=== PATIENT | male | born 1950 | race Caucasian/White ===

== ENCOUNTER 2016-07-28 00:51 | Emergency (ER) | payer MEDICARE, OTHER ==
[2016-07-28] MEDS ORDERED: ASPIRIN 81 MG TABLET, CHEWABLE PO ONE (01:35)
[2016-07-28 02:39] LABS: ABSOLUTE BASOPHILS # (AUTO) 0.1 10^3/uL (0.0-0.2); ABSOLUTE EOSINOPHILS # (AUTO) 0.2 10^3/uL (0.0-0.6); ABSOLUTE LYMPHOCYTES (AUTO) 2.1 10^3/uL (0.5-4.7); ABSOLUTE MONOCYTES (AUTO) 0.7 10^3/uL (0.1-1.4); ABSOLUTE NEUT (AUTO) 6.9 10^3/uL (1.7-8.2); BASOPHILS % (AUTO) 0.5 % (0-2); EOSINOPHILS % (AUTO) 1.7 % (0-6); HEMATOCRIT 42.4 % (37.9-51.0); HEMOGLOBIN 14.3 g/dL (13.5-17.0); HGB HCT DIFFERENCE 0.5; LYMPHOCYTES % (AUTO) 20.8 % (13-45); MEAN CORPUSCULAR HEMOGLOBIN 28.7 pg (27.0-33.4); MEAN CORPUSCULAR HGB CONC 33.6 g/dL (32.0-36.0); MEAN CORPUSCULAR VOLUME 85 fl (80-97); MONOCYTES % (AUTO) 7.1 % (3-13); RED BLOOD COUNT 4.97 10^6/uL (4.35-5.55); RED CELL DISTRIBUTION WIDTH 13.5 % (11.5-14.0); SEGMENTED NEUTROPHILS % (AUTO) 69.9 % (42-78); WHITE BLOOD COUNT 9.9 10^3/uL (4.0-10.5)
[2016-07-28 02:57] LABS: ALANINE AMINOTRANSFERASE 39 U/L (21-72); ALBUMIN 4.4 g/dL (3.5-5.0); ALKALINE PHOSPHATASE 48 U/L (38-126); ANION GAP 11 (5-19); ASPARTATE AMINO TRANSFERASE 30 U/L (17-59); BILIRUBIN,TOTAL 0.7 mg/dL (0.2-1.3); BLOOD UREA NITROGEN 20 mg/dL (7-20); CALCIUM 9.6 mg/dL (8.4-10.2); CARBON DIOXIDE 30 mmol/L (22-30); CHLORIDE 100 mmol/L (98-107); CREATINE KINASE 249 U/L (55-170); CREATININE RESULT 0.68 mg/dL (0.52-1.25); GLUCOSE 105 mg/dL (75-110); POTASSIUM 4.6 mmol/L (3.6-5.0); SODIUM 140.8 mmol/L (137-145); TOTAL PROTEIN 7.7 g/dL (6.3-8.2)
[2016-07-28] MEDS: NITROGLYCERIN 0.4 MG/TAB 25 TAB/BOTTLE SL PRN ×3 (03:06→03:16)
[2016-07-28] MEDS ORDERED: ONDANSETRON HCL INJ/PF 4 MG/2 ML SDV IV ONE (03:07)
--- NOTE | 2016-07-28 03:07 | ER Document Report ---
Addendum entered and electronically signed by ABDI VIEIRA NP 07/28/16 08:45 : Course - Re-evaluation Re-evalutation: 07/28/16 08:44 Patient complains of headache, Tylenol ordered. Patient's vital signs stable. Patient denies any chest pain or shortness of breath. Breath sounds clear bilaterally, heart rate and rhythm regular without murmur. Patient stable for transfer. - Vital Signs Vital signs: Temp Pulse Resp BP Pulse Ox 97.7 F 70 18 119/86 H 98 07/28/16 07:30 07/28/16 01:02 07/28/16 07:30 07/28/16 07:30 07/28/16 07:30 - Laboratory Result Diagrams: 07/28/16 02:15 07/28/16 02:15 Laboratory results interpreted by me: 07/28/16 07/28/16 02:15 02:15 Creatine Kinase 249 H CK-MB (CK-2) 4.76 H Addendum entered and electronically signed by ABDI VIEIRA NP 07/28/16 07:26 : Course - Re-evaluation Re-evalutation: 07/28/16 07:26 bedside report received, care assumed. Pt resting denies needs at present, VS stable. - Vital Signs Vital signs: Temp Pulse Resp BP Pulse Ox 97.8 F 70 15 122/87 H 96 07/28/16 01:02 07/28/16 01:02 07/28/16 07:15 07/28/16 07:15 07/28/16 07:15 - Laboratory Result Diagrams: 07/28/16 02:15 07/28/16 02:15 Laboratory results interpreted by me: 07/28/16 07/28/16 02:15 02:15 Creatine Kinase 249 H CK-MB (CK-2) 4.76 H Original Note: ED Cardiac - General Chief Complaint: Chest Pain Stated Complaint: CHEST PAIN Time seen by provider: 03:00 Notes: Patient is a 65-year-old male that comes emergency department with chief complaint of chest pain that feels like it comes from the top middle of his back to his lower chest, nausea, and sweating. Symptoms started 9 PM all he was sitting. Patient has had a stress test but not a cardiac catheterization. He states that they told him the stress test was negative, performed last year. Past medical history of type II diabetes, former smoker, positive family history of cardiac disease. TRAVEL OUTSIDE OF THE [place] IN LAST 30 DAYS: No - Related Data Allergies/Adverse Reactions: flu virus vacc tvs (18 yr up) cell derived [From EZ Flu ( Flucelvax)(PF)] Allergy (Intermediate, Verified 07/28/16 02:57) Generalized rash Past Medical History - General Information source: Patient - Social History Smoking Status: Former Smoker Frequency of alcohol use: Occasional Drug Abuse: None Lives with: Spouse/Significant other Family History: CAD - Past Medical History Cardiac Medical History: Reports: Hx Hypertension - was on lisinopril but states he was taken off due to BP stabilization Endocrine Medical History: Reports: Hx Diabetes Mellitus Type 2 - borderline- metformin Renal/ Medical History: Denies: Hx Peritoneal Dialysis - Immunizations Hx Diphtheria, Pertussis, Tetanus Vaccination: Yes Review of Systems - Review of Systems Constitutional: No symptoms reported EENT: No symptoms reported Cardiovascular: See HPI Respiratory: No symptoms reported Gastrointestinal: See HPI Genitourinary: No symptoms reported Male Genitourinary: No symptoms reported Musculoskeletal: No symptoms reported Skin: No symptoms reported Hematologic/Lymphatic: No symptoms reported Neurological/Psychological: No symptoms reported Physical Exam - Vital signs Vitals: Temp Pulse BP Pulse Ox 97.8 F 70 184/98 H 96 07/28/16 01:02 07/28/16 01:02 07/28/16 01:02 07/28/16 01:02 Interpretation: Normal - General General appearance: Anxious In distress: Moderate - Patient appears to obviously be in pain, diaphoretic, flushed - HEENT Head: Normocephalic, Atraumatic Eyes: Normal Conjunctiva: Normal Extraocular movements intact: Yes Eyelashes: Normal Pupils: PERRL Sinus: Normal Nasal: Normal Mouth/Lips: Normal Mucous membranes: Normal Pharynx: Normal Neck: Normal - Respiratory Respiratory status: No respiratory distress Chest status: Nontender Breath sounds: Normal. No: Decreased air movement, Wheezing Chest palpation: Normal - Cardiovascular Rhythm: Regular. No: Tachycardia Heart sounds: Normal auscultation, S1 appreciated, S2 appreciated Murmur: No - Abdominal Inspection: Normal Distension: No distension Bowel sounds: Normal Tenderness: Nontender - I did not appreciate any notable abdominal tenderness. No: Tender, Guarding Organomegaly: No organomegaly - Back Back: Normal, Nontender. 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 No significant change compared to prior. Chest x- ray unremarkable. Patient in obvious discomfort, hypertensive, diaphoretic, clear lungs, tachypnea , no shortness of breath, currently nauseated. Initial CBC, chemistry, troponins all unremarkable. Discussed with Dr. Youngblood per [facility] guidelines, concern for a dissection with patient's presentation. CTA of the chest and abdomen performed, no acute abnormalities noted. Patient somewhat improved after nitroglycerin sublingual, placed on nitroglycerin drip, patient began to improve, gave fentanyl in addition to this , patient improved more. Patient having somewhat intermittent chest pain now, on reevaluation he states he significantly improved but he is not chest pain- free. Increased nitro drip to 15 mcg. blood pressure is normalized. Patient still has chest pain but is significantly improved. 07/28/16 Because of persistent chest pain with no elevation of cardiac enzymes or EKG change, will call to transfer patient to tertiary center. Discussed with Dr. Youngblood. Discussed with patient, he states that he would like to go to [facility] because of closer proximity to his home. 07/28/16 0582 Called transfer center at [facility], pending call back. 07/28/16 [address] Rosa, patient will be accepted for transfer. - Vital Signs Vital signs: Temp Pulse Resp BP Pulse Ox 97.8 F 70 13 121/78 97 07/28/16 01:02 07/28/16 01:02 07/28/16 06:15 07/28/16 06:15 07/28/16 06:15 - Laboratory Result Diagrams: 07/28/16 02:15 07/28/16 02:15 Laboratory results interpreted by me: 07/28/16 07/28/16 02:15 02:15 Creatine Kinase 249 H CK-MB (CK-2) 4.76 H Discharge - Discharge Clinical Impression: Unstable angina Chest pain Qualifiers: Chest pain type: unspecified Qualified Code(s): R07.9 - Chest pain, unspecified Condition: Stable Disposition: [facility]
[2016-07-28 03:09] LABS: CREATINE KINASE MB 4.76 ng/mL (<4.55)
[2016-07-28 03:11] LABS: TROPONIN I < 0.012 ng/mL
[2016-07-28] MEDS ORDERED: MORPHINE SULFATE 10 MG/ML INJ IV ONE (03:19)
[2016-07-28] MEDS ORDERED: NITROGLYCERIN/D5W 250 ML IV PRN (03:36)
[2016-07-28] MEDS ORDERED: NITROGLYCERIN/D5W 50 MG/250 ML RTUINJ IV ONE (03:39)
[2016-07-28] MEDS ORDERED: FENTANYL CITRATE INJ/PF 100 MCG/2 ML AMPUL IV ONE (04:00)
[2016-07-28] MEDS ORDERED: FENTANYL CITRATE INJ/PF 100 MCG/2 ML AMPUL ONE (04:17)
[2016-07-28] MEDS ORDERED: ACETAMINOPHEN 325 MG TABLET PO ONE (08:44)
[2016-07-28 08:45] VITALS: BP 126/74
--- NOTE | 2016-07-28 09:38 | EKG REPORT ---
SEVERITY:- NORMAL ECG - SINUS RHYTHM : Confirmed by: Deisi Vallecillo MD 28-Jul-2016 09:37:18
--- NOTE | 2016-07-28 09:39 | EKG REPORT ---
SEVERITY:- OTHERWISE NORMAL ECG - SINUS RHYTHM LOW VOLTAGE IN FRONTAL LEADS : Confirmed by: Deisi Vallecillo MD 28-Jul-2016 09:38:01
== END 2016-07-28 09:00 | disposition short-term general hospital (02) ==
LOC: ER 00:51
DX: I20.0 Unstable angina (principal); I10 Essential (primary) hypertension; R11.0 Nausea; R61 Generalized hyperhidrosis; R51 Headache; E11.9 Type 2 diabetes mellitus without complications; R23.2 Flushing; R06.82 Tachypnea, not elsewhere classified; Z87.891 Personal history of nicotine dependence; Z82.49 Family history of ischemic heart disease and other diseases of the circulatory system; Z88.7 Allergy status to serum and vaccine
CPT/HCPCS: 93005; 99285; 96375; 96365; 96366; 36415; 82553; 82550; 83690; 85025; 80053; 84484; 71020; 71275; 74175; 93010; A9270 ×2; J3010; J2270; J2405; J3490

== ENCOUNTER → 2017-09-11 | Outpatient (CLI) | payer MEDICARE, OTHER ==
--- NOTE | 2017-09-11 16:00 | RADIOLOGY REPORT (SQ) ---
EXAM DESCRIPTION: MRI HEAD COMBO COMPLETED DATE/TIME: 09/11/2017 10:23 am REASON FOR STUDY: H53.2 DIPLOPIA H53.2 DIPLOPIA COMPARISON: None. TECHNIQUE: Multiplanar imaging includes noncontrasted T1, T2, FLAIR, diffusion with ADC map and post gadolinium contrast T1 sequences. Images stored on PACS. Additional thin section axial and coronal T1 pre and postcontrast, T2 fat sat images of the orbits an d central optic pathways. CONTRAST TYPE AND DOSE: 20 mL Multihance. RENAL FUNCTION: GFR > 60. LIMITATIONS: None. FINDINGS: ANATOMY: Cavum septum pellucidum, a benign anatomic variant. Normal vascular flow voids. Pituitary fossa normal. CSF SPACES: Normal in size and contour. No hemorrhage. CEREBRUM: Sulci and gyri normal in size and contour. Age-appropriate minimal increased deep perivent ricular white matter signal on FLAIR imaging. No evidence of hemorrhage, mass, or extraaxial fluid co llection. No abnormal enhancement post contrast. POSTERIOR FOSSA: No signal alteration. No hemorrhage. No edema, masses, or mass effect. Internal hector tory canals, cerebellopontine angles, mastoids normal. No enhancing lesions. No abnormal enhancement post contrast. ORBITS: Bilateral inferior rectus muscles demonstrate inflammation and enlargement, bright signal on T2 with avid gadolinium enhancement. Remainder of the extraocular muscles are otherwise unremarkable . Question early changes of thyroid ophthalmopathy. Optic nerves, intra and extraconal fat, lacrimal glands unremarkable. Globes are post cataract surge ry. Suprasellar cistern, cavernous sinuses, optic pathways in the field of view are otherwise unremarkabl e. DIFFUSION-WEIGHTED IMAGES: No evidence of acute ischemic change. PARANASAL SINUSES: No fluid levels. Mucosa normal. OTHER: No other significant finding. IMPRESSION: No acute brain parenchymal findings. Enlarged inferior rectus muscles bilaterally with edema on T2 and contrast enhancement. Findings sug gest thyroid ophthalmopathy EVIDENCE OF ACUTE STROKE: NO. TECHNICAL DOCUMENTATION: JOB ID: [id number] [employer]- All Rights Reserved Reading location - IP/workstation name: [email or web address]
== END ==
LOC: RAD 09:28
PROVIDERS: ATTEND Ophthalmology
DX: H53.2 Diplopia (principal)
CPT/HCPCS: 82565; 70553; A9577

== ENCOUNTER → 2018-08-14 | Outpatient (CLI) | payer MEDICARE, OTHER ==
--- NOTE | 2018-08-14 10:50 | RADIOLOGY REPORT (SQ) ---
EXAM DESCRIPTION: CT CHEST WITHOUT COMPLETED DATE/TIME: 08/14/2018 10:05 am REASON FOR STUDY: MULTIPLE LUNG NODULES (R91.8) R91.8 OTHER NONSPECIFIC ABNORMAL FINDING OF LUNG FI ELD COMPARISON: 07/28/2016 TECHNIQUE: CT scan performed of the chest without intravenous contrast. Images reviewed with lung, soft tissue and bone windows. Reconstructed coronal and sagittal MPR images reviewed. All images st ored on PACS. All CT scanners at this facility use dose modulation, iterative reconstruction, and/or weight based d osing when appropriate to reduce radiation dose to as low as reasonably achievable (ALARA). [facility]: Dose Right [facility]: CareDose [facility]: Dose Right [facility]: Teradose 4D [facility]: ERLink RADIATION DOSE: CT Rad equipment meets quality standard of care and radiation dose reduction techniq ues were employed. CTDIvol: 13.1 mGy. DLP: 529 mGy-cm. mGy. LIMITATIONS: No technical limitations. FINDINGS: LUNGS AND PLEURA: Scattered tiny subcentimeter pulmonary nodules, largest within the right lower lobe measuring 5 mm (series 4, image 66), stable compared to CT dated 11/01/2015. No new suspic ious nodules or masses. No focal airspace disease. No significant effusion. No pneumothorax. Mini mal left basilar hypoventilatory change. HILAR AND MEDIASTINAL STRUCTURES: No mediastinal, hilar or axillary adenopathy. HEART AND VASCULAR STRUCTURES: No pericardial effusion. Scattered coronary atherosclerosis. Normal heart size. Aortic atherosclerosis. Mild dilation of the thoracic aorta measuring up to 3.8 cm maxi ajay. . UPPER ABDOMEN: No significant findings. Limited exam. THYROID AND OTHER SOFT TISSUES: No masses. No adenopathy. BONES: No significant finding. HARDWARE: Prior cholecystectomy surgical clips. OTHER: No other significant findings. IMPRESSION: No evidence of acute intrathoracic process. Mild dilation of the thoracic aorta measuring up to 3.8 cm, stable. Stable subcentimeter pulmonary nodules compared to 2016. No new suspicious nodules or masses. TECHNICAL DOCUMENTATION: JOB ID: [id number] Quality ID # [id number]: Final reports with documentation of one or more dose reduction techniques (e.g., Au tomated exposure control, adjustment of the mA and/or kV according to patient size, use of iterative reconstruction technique) 2010 [employer]- All Rights Reserved Reading location - IP/workstation name: [email or web address]
== END ==
LOC: RAD 09:45
PROVIDERS: ATTEND Internal Medicine Pulmonary Disease
DX: R91.8 Other nonspecific abnormal finding of lung field (principal)
CPT/HCPCS: 71250

== ENCOUNTER → 2019-03-17 | Outpatient (CLI) | payer MEDICARE, OTHER ==
--- NOTE | 2019-03-17 13:11 | RADIOLOGY REPORT (SQ) ---
EXAM DESCRIPTION: MRI LUMBAR SPINE WITHOUT COMPLETED DATE/TIME: 03/17/2019 12:36 pm REASON FOR STUDY: M54.16 RADICULOPATHY, LUMBAR REGION M54.16 RADICULOPATHY, LUMBAR REGION COMPARISON: None. TECHNIQUE: Sagittal and Axial imaging includes T1, T2, STIR and gradient echo sequences. Coronal T2/ HASTE imaging. LIMITATIONS: None. FINDINGS: VISUALIZED UPPER ABDOMEN: Limited evaluation. No acute or suspicious findings suggested. SEGMENTATION: No transitional anatomy. The lowest well-developed disc space is labeled L5-S1. ALIGNMENT: Anatomic. VERTEBRAE: Intact. BONE MARROW: Normal. No marrow replacement or reactive changes. DISC SIGNAL: The L5-S1 disc is narrowed. There is decreased signal intensity. POSTERIOR ELEMENTS: Generally intact. No pars defect evident. HARDWARE: None in the spine. CORD AND CONUS: Normal in size and signal intensity. Conus at the T12-L1 level. SOFT TISSUES: No aortic aneurysm seen. No bulky retroperitoneal adenopathy or mass. No paraspinal mas s or fluid. L1-L2: No significant spinal stenosis or exit foraminal stenosis. L2-L3: No significant spinal stenosis or exit foraminal stenosis. L3-L4: No significant spinal stenosis or exit foraminal stenosis. L4-L5: Mild facet and ligament hypertrophy narrows the posterior aspect of the spinal canal. Nerve r oots are displaced medially on the right. L5-S1: There is a very shallow disc/ osteophyte complex with no central canal or foraminal stenosis. LOWER THORACIC: Incompletely imaged. No stenosis seen. SACRUM: Visualized upper sacrum intact. OTHER: No other significant findings. IMPRESSION: Facet and ligament hypertrophy at L4-5 narrows the posterior aspect of the spinal canal. Nerve roots are displaced medially on the right side. There is a very shallow disc/ osteophyte com plex at L5-S1 with no central canal or foraminal stenosis. TECHNICAL DOCUMENTATION: JOB ID: [id number] [employer]- All Rights Reserved Reading location - IP/workstation name: [email or web address]
== END ==
LOC: RAD 11:51
PROVIDERS: ATTEND Family Medicine
DX: M54.16 Radiculopathy, lumbar region (principal)
CPT/HCPCS: 72148

== ENCOUNTER → 2019-05-10 | Outpatient (CLI) | payer MEDICARE, OTHER ==
--- NOTE | 2019-05-10 14:41 | EKG REPORT ---
SEVERITY:- BORDERLINE ECG - SINUS RHYTHM BORDERLINE T WAVE ABNORMALITIES : Confirmed by: Deisi Vallecillo MD 10-May-2019 14:40:26
--- NOTE | 2019-05-11 21:52 | DRAGON STRESS TEST REPORT ---
Exercise EKG treadmill stress test. Data procedure: 05/10/2019. Ordering Provider: Dr. Tristan Scott. Patient Status: Out Patient. Indication: Precordial chest pain. Coronary risk factors:. Age, and diabetes mellitus. Significant physical findings prior to stress testing show a blood pressure of 142/97 and a heart rate of 68 beat per minute. Auscultation of the heart shows normal S1 and S2.NoS3 or S4 gallops. Systolic murmur in the left sternal border and apex. Lungs are clear to auscultation and percussion. Resting 12-lead EKG:. Sinus Rhythm. Nonspecific T changes in leads I and aVL. Procedure: The patient was excised on a standard Andrzej protocol. . The patient walked a total of 8 minutes and 44 seconds on this protocol and reached a peak heart rate of 129 beats per minute, which is 86% of maximum predicted heart rate for age. This is at a workload of 10.10 METS. The test was stopped because of. Achievement of target heart rate. The patient described no symptoms of chest pain/discomfort Exercise EKG's show:. There is no EKG evidence of exercise-induced ischemia. Arrhythmias seen:None. The blood pressure response was hypertensive. At peak exercise the blood pressure was 204/92 millimeters of Hg. The double product was 26.3 K. Summary of findings and interpretation: 1. No chest pain or chest discomfort symptoms reproduced. 2. No EKG evidence of ischemia in the form of ST segment depression. 3. Hypertensive blood pressure response. 4. No arrhythmias seen. 5. Good exercise tolerance, good aerobic capacity. Diagnostic treadmill stress test negative for ischemia by EKG criteria. Recommendations: 1. Recommend optimal blood pressure control. 2.Aggressive risk factor modification, and treatment of underlying co- morbidities. MTDD
== END ==
LOC: SP 08:39
PROVIDERS: ATTEND Internal Medicine
DX: R07.2 Precordial pain (principal); E11.9 Type 2 diabetes mellitus without complications
CPT/HCPCS: 93005; 93010; 93017

== ENCOUNTER → 2020-07-18 | Outpatient (CLI) | payer MEDICARE, OTHER ==
--- NOTE | 2020-07-18 16:17 | RADIOLOGY REPORT (SQ) ---
EXAM DESCRIPTION: MRI RT LOWER JOINT WITHOUT IMAGES COMPLETED DATE/TIME: 07/18/2020 4:05 pm REASON FOR STUDY: (M25.561)PAIN IN RIGHT KNEE M25.561 PAIN IN RIGHT KNEE COMPARISON: None. TECHNIQUE: Rightknee images acquired and stored on PACS. Multiplanar images include fat sensitive s equences as T1, water sensitive sequences as FST2 or STIR, cartilage sensitive sequences as FSPD, and gradient echo sequences. LIMITATIONS: Patient movement. FINDINGS: JOINT AND BURSAE: Large effusion. BONE CORTEX AND MARROW: No alteration of signal to suggest marrow replacement. No worrisome bone lesi ons. No occult fracture. ACL: Intact. PCL: Intact. MCL: Intact. No periligamentous edema or fluid. LCL: Intact. No periligamentous edema or fluid. MEDIAL MENISCUS: Increased T2 signal posterior horn extending to the articular surface. LATERAL MENISCUS: Lateral extrusion. Very little normal remaining meniscal tissue. MEDIAL COMPARTMENT: Mild osteoarthritis. No subchondral edema. LATERAL COMPARTMENT: Cartilage thinning. No large osteophytes or subchondral edema. PATELLA: Mild osteoarthritis. Intact retinaculum. EXTENSOR MECHANISM: Intact. Quadriceps and patella tendons normal. SOFT TISSUES: Ruptured Newsome's cyst. OTHER: No other significant finding. IMPRESSION: 1. Limitations due to patient motion. Complex tear lateral meniscus, likely bucket-handle variant. 2. Horizontal tear posterior horn medial meniscus. 3. Joint effusion. 4. Mild osteoarthritis. 5. Ruptured Newsome's cyst. TECHNICAL DOCUMENTATION: JOB ID: [id number] 2010 [employer]- All Rights Reserved Reading location - IP/workstation name: [email or web address]
== END ==
LOC: RAD 14:41
PROVIDERS: ATTEND Specialist/Technologist Athletic Trainer
DX: S83.271A Complex tear of lateral meniscus, current injury, right knee, initial encounter (principal); S86.811A Strain of other muscle(s) and tendon(s) at lower leg level, right leg, initial encounter; M25.561 Pain in right knee; X58.XXXA Exposure to other specified factors, initial encounter